=== PATIENT | female | born 1955 | race Caucasian/White ===

== ENCOUNTER 2020-08-16 14:26 | Outpatient (CLI) | payer OTHER ==
--- NOTE | 2020-08-16 15:04 | CT ---
CT Abdomen Pelvis WO Con 08/16/2020 2:42 PM HISTORY: Dysuria. Right flank pain with pain radiating to the groin. COMPARISON: 04/18/2011 Technique: Multiple contiguous axial CT images are obtained through the abdomen and pelvis without IV contrast. Coronal reformats are provided. FINDINGS: This examination is limited for the evaluation of solid organs and vascular structures due to the lac k of intravenous contrast. Lower Chest: Mild emphysematous changes are seen at each lung base with minimal atelectasis also pres ent. A few punctate nodular densities in the posterolateral left lung base and adjacent to the dome of liver on the left which are unchanged and may represent tiny calcified granuloma. Abdomen: Liver: There is a peripheral nodular contour of the liver suggesting cirrhosis. Liver is enlarged ruthie suring 20 cm in craniocaudal dimensions. Gallbladder: Incompletely distended. Pancreas: Grossly normal nonenhanced CT appearance. Spleen: Grossly normal nonenhanced CT appearance. The spleen is not enlarged. Adrenals: Grossly normal nonenhanced CT appearance. Kidneys: 1 to 2 mm nonobstructing calculus superior pole right kidney. No left renal calculus is seen . There is no hydronephrosis. Ureters: No ureteral calculus is seen.. Pelvis: Urinary bladder: Incompletely decompressed and not evaluated on this exam. Reproductive Organs: Evidence of hysterectomy. Lymph Nodes: Limited evaluation for lymphadenopathy due to lack of intra-abdominal fat and lack of IV contrast, and no definite enlarged lymph nodes are seen. Bowel: Normal caliber. Appendix: Normal in caliber. Peritoneum: No free fluid, free air, or fluid collection. Retroperitoneum: within normal limits. Vessels: Vascular calcifications in the abdominal aorta and iliac arteries.. Abdominal Wall: Tiny fat-containing umbilical hernia. Bones: Endplate sclerosis L5-S1 level with minimal vacuum phenomenon. Prominent osteophytes are seen anteriorly. These findings additional scattered degenerative changes are seen in the lumbar and lower thoracic spine. Are likely related to severe degenerative changes at the lumbosacral junction. IMPRESSION: 1. Hepatomegaly with cirrhotic morphology of the liver. 2. Nonobstructing punctate right renal calculus. No left renal calculus or ureteral calculi are seen bilaterally.
== END 2020-08-16 14:27 | disposition home or self-care (01) ==
LOC: NAV CT 14:26
PROVIDERS: ATTEND Internal Medicine
DX: R31.29 Other microscopic hematuria (principal); R10.9 Unspecified abdominal pain; K74.60 Unspecified cirrhosis of liver; N20.0 Calculus of kidney
CPT/HCPCS: 74176

== ENCOUNTER 2020-09-25 10:21 | Outpatient (CLI) | payer OTHER ==
--- NOTE | 2020-09-25 12:43 | RAD ---
LUMBAR SPINE SERIES 3 VIEWS: Date: 09/25/2020 HISTORY: Back pain. FINDINGS: Vertebral bodies are normal in height. There is severe degenerative disc narrowing at L5-S1. Osteophy tic changes are seen along the course of the spine. There are atherosclerotic changes of the aorta. P edicles are intact. 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 POS: YANA
== END 2020-09-25 10:22 | disposition home or self-care (01) ==
LOC: NAV RAD 10:21
PROVIDERS: ATTEND Internal Medicine
DX: M54.5 Low back pain (principal); M46.97 Unspecified inflammatory spondylopathy, lumbosacral region
CPT/HCPCS: 72100

== ENCOUNTER 2022-04-15 11:25 | Emergency (ER) | payer OTHER ==
[~2022-04-15 11:25] MED LIST: Iopamidol 370 76% 100 ML VIAL ONE
[2022-04-15 12:12] LABS: ALT (SGPT) 36 U/L (8-55); AST (SGOT) 51 U/L (5-34); Albumin 4.3 g/dL (3.4-4.8); Alkaline Phosphatase 89 U/L (40-110); Anion Gap 18 mmol/L (10-20); BUN (Urea Nitrogen) 11 mg/dL (9.8-20.1); Bilirubin, Total 1.2 mg/dL (0.2-1.2); Calc. Creatinine Clearance 0 mL/min (70-130); Carbon Dioxide 24 mmol/L (23-31); Chloride 101 mmol/L (98-107); Globulin 4.7 g/dL (2.4-3.5); Glucose 100 mg/dL (80-115); Lipase 66 U/L (8-78); Potassium 3.8 mmol/L (3.5-5.1); Sodium 139 mmol/L (136-145)
[2022-04-15 12:13] LABS: #Basophils 0.1 thou/uL (0.0-0.2); #Eosinphils 0.3 thou/uL (0.0-0.7); #Lymphocytes 2.6 thou/uL (1.20-3.40); #Neutrophils 4.3 thou/uL (1.40-6.50); %Basophils 1.4 % (0.0-1.0); %Eosinophils 3.5 % (0.0-10.0); %Lymphocytes 31.1 % (21.0-51.0); %Monocytes 11.6 % (0.0-10.0); %Neutrophils 52.4 % (42.0-75.0); Hemoglobin 15.1 g/dL (12.0-16.0); Mean Corpuscular HGB CONC 33.2 g/dL (32.0-36.0); Mean Corpuscular Hemoglobin 35.3 pg (27.0-31.0); Platelet Count 147 thou/uL (130-400); RBC Distribution Width 10.7 % (11.5-14.5); Red Blood Cell (RBC) Count 4.27 mill/uL (4.20-5.40); White Blood Cell (WBC) Count 8.3 thou/uL (4.8-10.8)
[2022-04-15 12:14] LABS: Clarity Clear (Clear); Glucose, Urine (Dipstick) Negative (Negative); Leukocyte Negative (Negative); Nitrite Negative (Negative); Protein, Urine (Dipstick) Negative (Neg-Trace); Specific Gravity, Urine 1.015 (1.005-1.030)
[2022-04-15 12:15] LABS: Bilirubin Negative (Negative); Blood, Urine Small (Negative); Ketone, Urine Negative (Negative); Urobilinogen 0.2 mg/dL (Less than 2)
[2022-04-15 12:21] LABS: Magnesium 1.7 mg/dL (1.6-2.6)
[2022-04-15 12:47] LABS: RBC/HPF 0-3 HPF (0-3)
== END 2022-04-15 14:11 | disposition short-term general hospital (02) ==
LOC: NAV ERS 11:25
DX: K82.8 Other specified diseases of gallbladder (principal); R19.7 Diarrhea, unspecified; I10 Essential (primary) hypertension; F17.210 Nicotine dependence, cigarettes, uncomplicated; Z87.19 Personal history of other diseases of the digestive system; Z79.899 Other long term (current) drug therapy
CPT/HCPCS: 74177; 80053; 81003; 81015; 83690; 83735; 85025; 94760; 96360; Q9967

== ENCOUNTER 2024-10-08 21:51 | Emergency (ER) | payer MEDICARE, OTHER ==
[2024-10-08] MEDS ORDERED: Lidocaine 1% w/Epinephrine 1:100K 20 ML VIAL ONE (22:20)
[2024-10-08] MEDS ORDERED: Bacitracin 1 PK ONE (23:44)
[2024-10-08] MEDS ORDERED: Boostrix 0.5 ML (Tdap) VIAL (>/=7 yrs of age) ONE (23:45)
== END 2024-10-09 00:13 | disposition home or self-care (01) ==
LOC: NAV ERS 21:51
DX: S01.01XA Laceration without foreign body of scalp, initial encounter (principal); S01.81XA Laceration without foreign body of other part of head, initial encounter; I10 Essential (primary) hypertension; F17.210 Nicotine dependence, cigarettes, uncomplicated; W01.198A Fall on same level from slipping, tripping and stumbling with subsequent striking against other object, initial encounter; Z23 Encounter for immunization
CPT/HCPCS: 12002; 12015; 70450; 72125; 90471; 90715

== ENCOUNTER 2024-10-14 11:45 | Emergency (ER) | payer MEDICARE | END 2024-10-14 12:17 | disposition home or self-care (01) | LOC: NAV ERS 11:45 | DX: S01.01XD Laceration without foreign body of scalp, subsequent encounter (principal); I10 Essential (primary) hypertension; F17.210 Nicotine dependence, cigarettes, uncomplicated; X58.XXXD Exposure to other specified factors, subsequent encounter ==

== ENCOUNTER 2024-10-18 10:29 | Emergency (ER) | payer MEDICARE | END 2024-10-18 11:04 | disposition home or self-care (01) | LOC: NAV ERS 10:29 | DX: S01.01XD Laceration without foreign body of scalp, subsequent encounter (principal); I10 Essential (primary) hypertension; F17.210 Nicotine dependence, cigarettes, uncomplicated; W18.30XD Fall on same level, unspecified, subsequent encounter ==